=== PATIENT | female | born 2000 | race American Indian/Alaskan Native ===

== ENCOUNTER 2018-07-23 17:54 | Emergency (ER) | payer MEDICAID ==
[2018-07-23 18:01] VITALS: BMI 28.5
[2018-07-23 18:04] VITALS: PULSE 70; RESP 18; TEMP 98.2; O2SAT 100
--- NOTE | 2018-07-23 18:23 | ED PDOC ---
Arrival/HPI - General Chief Complaint: Abnormal Skin Integrity Time Seen by Provider: 07/23/18 17:55 Historian: Patient - History of Present Illness Narrative History of Present Illness (Text): 17 y/o female with no significant PMH presents to ED c/o pruritic rash x 1 day. Patient states rash began this morning, unprovoked, located to bilateral upper and lower extremities. No new lotions, detergents, foods. NKDA, NKFA. Denies f ever, chills, cough, SOB, wheezing, throat/mouth/tongue swelling, nausea, vomiting, abdominal pain, or any other associated symptoms. Past Medical History - Provider Review Nursing Documentation Reviewed: Yes Primary Care Provider: Petar Montelongo - Infectious Disease Hx of Infectious Diseases: None - Psychiatric Hx Substance Use: No - Anesthesia Hx Anesthesia: No Family/Social History - Physician Review Nursing Documentation Reviewed: Yes Family/Social History: No Known Family HX Smoking Status: Never Smoked Hx Alcohol Use: No Hx Substance Use: No Allergies/Home Meds Allergies/Adverse Reactions: Allergies No Known Allergies Allergy (Verified 07/23/18 18:00) Home Medications: Home Meds Medication Instructions Recorded Confirmed Desog-E.estradiol/E.estradiol 1 tab PO DAILY 07/23/18 07/23/18 [Viorele 28 Day Tablet] Review of Systems - Review of Systems Constitutional: Normal. absent: Fevers Eyes: Normal. absent: Vision Changes, Eye Pain ENT: Normal. absent: Sore Throat, Sinus Congestion, Other (no tongue /lip/tongue/throat swelling) Respiratory: Normal. absent: SOB, Cough, Wheezing Cardiovascular: Normal. absent: Chest Pain, Palpitations, Syncope Gastrointestinal: Normal. absent: Abdominal Pain, Nausea, Vomiting Genitourinary Female: Normal. absent: Dysuria, Frequency Musculoskeletal: Normal. absent: Back Pain, Neck Pain, Joint Swelling Skin: Rash, Pruritis Neurological: Normal. absent: Headache, Dizziness Physical Exam Vital Signs Reviewed: Yes Vital Signs Temp Pulse Resp BP Pulse Ox 07/23/18 18:03 98.2 F 70 18 121/68 100 Temperature: Afebrile Blood Pressure: Normal Pulse: Regular Respiratory Rate: Normal Appearance: Positive for: Well-Appearing, Non-Toxic, Comfortable Pain Distress: None Mental Status: Positive for: Alert and Oriented X 3 - Systems Exam Head: Present: Atraumatic, Normocephalic Pupils: Present: PERRL Extroacular Muscles: Present: EOMI Conjunctiva: Present: Normal Mouth: Present: Moist Mucous Membranes, Normal Lips, Normal Tounge. No: Drooling, Trismus Pharnyx: Present: Normal. No: ERYTHEMA, EXUDATE, TONSILS ENLARGED Neck: Present: Normal Range of Motion. No: Meningeal Signs Respiratory/Chest: Present: Clear to Auscultation, Good Air Exchange. No: Respiratory Distress, Accessory Muscle Use Cardiovascular: Present: Regular Rate and Rhythm, Normal S1, S2. No: Murmurs Abdomen: Present: Normal Bowel Sounds. No: Tenderness, Distention, Peritoneal Signs Back: Present: Normal Inspection. No: CVA Tenderness Upper Extremity: Present: Normal ROM, NORMAL PULSES, Neurovascularly Intact, Capillary Refill < 2s. No: Cyanosis, Edema, Temperature Abnormalties Lower Extremity: Present: NORMAL PULSES, Normal ROM, Neurovascularly Intact, Capillary Refill < 2 s. No: Edema, Temperature Abnormalties Neurological: Present: GCS=15, CN II-XII Intact, Speech Normal, Motor Func Grossly Intact, Normal Sensory Function, Gait Normal Skin: Present: Warm, Dry, Rashes (erythematous, blanchable, raised wheals to bilateral upper and lower extremities), Normal Color Psychiatric: Present: Alert, Oriented x 3, Normal Insight, Normal Concentration, Normal Affect, Normal Mood Medical Decision Making ED Course and Treatment: Initial Plan: * Prednisone * Pepcid * Benadryl On initial exam, patient is very well appearing in no acute distress. No mouth/tongue/throat/lip swelling, no SOB, no wheezing. Lungs CTA. No nausea or vomiting. No recent travel. Patient reports improvement in symptoms with medication. Advised PMD followup for allergy testing. Diagnostic testing results and plan of care discussed with patient. Strict instructions given regarding prescription use, importance of followup, and signs/symptoms to return to ER including throat/tongue/lip swelling, SOB, vomiting, or any other new/worsening symptoms. Pt verbalized understanding of discussion. Patient is A&Ox3, ambulating with steady gait, with vital signs stable for discharge. Disposition/Present on Arrival - Present on Arrival Any Indicators Present on Arrival: No History of DVT/PE: No History of Uncontrolled Diabetes: No Urinary Catheter: No History of Decub. Ulcer: No History Surgical Site Infection Following: None - Disposition Have Diagnosis and Disposition been Completed?: Yes Diagnosis: Allergic reaction Disposition: HOME/ ROUTINE Disposition Time: 19:30 Patient Plan: Discharge Condition: IMPROVED Discharge Instructions (ExitCare): Allergy Skin Testing Additional Instructions: Benadryl every 6 hours as needed for itching Pepcid every 12 hours for 4 days Prednisone 2 tabs daily for 4 days Calamine lotion daily Followup with primary doctor within 2 days Return to ER with any new/worsening symptoms Prescriptions: DiphenhydrAMINE [Benadryl] 25 mg PO Q6 PRN #30 cap PRN Reason: Itching / Pruritus Famotidine [Pepcid] 20 mg PO Q12H #8 tab predniSONE [predniSONE Tab] 40 mg PO DAILY #8 tab Referrals: Petar Montelongo [Primary Care Provider] - Follow up with primary Forms: [facility] (Polish), WORK NOTE
[2018-07-23 19:56] VITALS: BP 124/73
== END 2018-07-23 19:57 | disposition home or self-care (01) ==
LOC: ED 17:54
DX: T78.40XA Allergy, unspecified, initial encounter (principal); X58.XXXA Exposure to other specified factors, initial encounter